=== PATIENT | male | born 1995 | race Hispanic/Latino ===

== ENCOUNTER 2024-02-27 00:27 | Emergency (ER) | payer OTHER ==
[2024-02-27] MEDS ORDERED: LIDOCAINE 1% 20 ML MDV ONE (00:41)
[2024-02-27] MEDS ORDERED: ACETAMINOPHEN 500 MG TAB ONE (00:42)
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
[2024-02-27 10:06] VITALS: BP 109/52; TEMP 98.4; O2SAT 99
--- NOTE | 2024-02-27 11:35 | RAD REPORT ---
EXAM DESCRIPTION: CT - Head C Spine Cap Wo Con - 02/27/2024 6:13 am CLINICAL HISTORY: The patient is 28 years old and is Male; TRAUMA TECHNIQUE: Axial computed tomography images of the head/brain and cervical spine without intravenous contrast. Sagittal and coronal reformatted images were created and reviewed. This CT exam was pe rformed using one or more of the following dose reduction techniques: automated exposure control, a djustment of the mA and/or kV according to patient size, and/or use of iterative reconstruction techn ique. COMPARISON: No relevant prior studies available. FINDINGS: BRAIN: Unremarkable. No hemorrhage. No significant white matter disease. No edema. VENTRICLES: Unremarkable. No ventriculomegaly. SKULL: See below. SINUSES: Unremarkable as visualized. No acute sinusitis. MASTOID AIR CELLS: Unremarkable as visualized. No mastoid effusion. VERTEBRAE: The vertebral body heights and alignment are maintained. No acute fracture. DISCS/SPINAL CANAL/NEURAL FORAMINA: The intervertebral disc spaces are maintained. No spinal jessica l stenosis. SOFT TISSUES: The soft tissues are normal. NASAL CAVITY/SEPTUM: Bilateral nasal bone fractures are present. LUNG APICES: Unremarkable as visualized. IMPRESSION: 1. No acute intracranial findings. 2. No fracture or malalignment of the cervical spine. 3. Bilateral nasal bone fractures. EXAM DESCRIPTION: CT Chest, Abdomen and Pelvis Without Intravenous Contrast CLINICAL HISTORY: The patient is 28 years old and is Male; TRAUMA TECHNIQUE: Axial computed tomography images of the chest, abdomen and pelvis without intravenous con trast. Sagittal and coronal reformatted images were created and reviewed. This CT exam was perfor med using one or more of the following dose reduction techniques: automated exposure control, adjus tment of the mA and/or kV according to patient size, and/or use of iterative reconstruction technique . COMPARISON: No relevant prior studies available. FINDINGS: CHEST: LUNGS: The lungs are clear of focal opacity, mass, or consolidation. PLEURAL SPACE: Unremarkable. No significant effusion. No pneumothorax. HEART: No cardiomegaly. No pericardial effusion. ABDOMEN: LIVER: Homogeneous without focal mass. GALLBLADDER AND BILE DUCTS: The gallbladder is distended. No calcified gallstones or ductal dilat ation is seen. PANCREAS: Unremarkable. No ductal dilation. SPLEEN: Unremarkable. ADRENALS: Unremarkable. No mass. KIDNEYS AND URETERS: No obstructing stones. No hydronephrosis. No perinephric fluid. STOMACH AND BOWEL: The stomach is distended with food contents and air. The small bowel is normal in caliber. Stool is present throughout the colon. There is no mucosal thickening or evidence of bow el obstruction. PELVIS: APPENDIX: The appendix is normal in caliber without surrounding inflammation. BLADDER: The bladder is well distended. No stones. REPRODUCTIVE: Unremarkable as visualized. CHEST, ABDOMEN and PELVIS: INTRAPERITONEAL SPACE: Unremarkable. No significant fluid collection. No free air. BONES/JOINTS: Several healed/healing left-sided rib fractures are present. Acute fracture through the anterior aspect of S5 on the right and through the body of the first coccygeal element is noted. There is no other acute fracture of the visualized axial and appendicular skeleton. The vertebral rosie dy heights and alignment are otherwise maintained. SOFT TISSUES: Contusion within the soft tissues of the left buttock is noted. VASCULATURE: Unremarkable. No aortic aneurysm. LYMPH NODES: Unremarkable. No enlarged lymph nodes. IMPRESSION: 1. No evidence of solid organ injury on this noncontrasted CT of the chest, abdomen, a nd pelvis. 2. Fracture of the right anterior aspect of S5 and through the body of the first coccygeal element. 3. Contusion within the soft tissues of the buttocks on the left. Electronically signed by: Susannah Magallon MD 02/27/2024 02:00 AM CDT Due to temporary technical issues with the PACS/Fluency reporting system, reports are being signed by the in house radiologist without review as a courtesy to ensure prompt reporting. The interpreting r adiologist is fully responsible for the content of the report.
== END 2024-02-27 02:18 ==
LOC: ER 00:27
PROC: 0HQ1XZZ Repair Face Skin, External Approach (ICD-10-PCS; principal; 2024-02-27)
DX: S01.511A Laceration without foreign body of lip, initial encounter (principal); S01.01XA Laceration without foreign body of scalp, initial encounter; S02.2XXA Fracture of nasal bones, initial encounter for closed fracture; S32.19XA Other fracture of sacrum, initial encounter for closed fracture; Y04.8XXA Assault by other bodily force, initial encounter
CPT/HCPCS: 70450; 71250; 72125; 99284; 12011; J2001